=== PATIENT | female | born 1990 | race Caucasian/White ===

== ENCOUNTER 2024-11-26 17:23 | Outpatient (CLI) | payer OTHER, SELFPAY ==
[2024-11-26 17:56] VITALS: RESP 16; TEMP 36.9
[2024-11-26 18:51] LABS: ROM Internal Control Test YES-OK TO RESULT pt. (Internal QC); ROM Patient Test Negative (Negative)
[2024-11-26 18:52] LABS: Record Kit Lot#, ROM+ K3358
--- NOTE | 2024-11-26 18:56 | OB.TRI.NOTE ---
HPI - General HPI Narrative PAMELA BROWNING, is a 34 F at 40.3 weeks gestation who presents to rule out rupture of membranes. Stated she has been leaking fluid since earlier today. Denies any vaginal bleeding and reports positive movements. Maternal Data Information JERAD Calculator Estimated Delivery Date Method Current WG Current Estimate 11/23/24 Manual 40w 3d PFSH PFSH Home Medications ?Medication ?Instructions ?Recorded ?Last Taken ?Type biotin 1 mg capsule 1 mg PO DAILY 11/26/24 11/19/24 08:00 History 1 mg vits no.130-ferrous fum 1 tab PO .daily' 11/26/24 11/26/24 08:00 History 27 mg iron-folic acid 800 mcg 1 TAB tablet ( Vitamin) Allergy/AdvReac Type Severity Reaction Status Date / Time No Known Drug Allergies Allergy no known Verified 11/26/24 18:08 allergies ROS Eyes Eyes: Denies blurry vision Cardiovascular Cardiovascular: Reports none; Denies chest pain at rest, chest pain with activity or dizziness Respiratory/Chest Respiratory/Chest: Denies cough or dyspnea Gastrointestinal Gastrointestinal: Reports none and other; Denies diarrhea or vomiting Genitourinary Genitourinary: Denies dysuria Musculoskeletal Musculoskeletal: Reports none Integumentary Integumentary: Reports none; Denies rash Neurologic Neurologic: Denies dizziness, headache(s) or other visual disturbances Psychiatric Psychiatric: Reports none Physical Exam Const alert and no apparent distress General Appearance: cooperative Orientation / Consciousness: awake Exam Limitations: no limitations HEENT normocephalic Eyes General Eye: normal appearance of both eyes Neck full ROM Chest inspection of chest normal Resp normal respiratory effort and normal air movement Effort and Inspection: symmetric chest movement Auscultation: clear to auscultation bilaterally Cardio regular rate GI soft to palpation, non-tender and non-distended Inspection: and other Back/Spine normal ROM Extremity full ROM, normal capillary refill and no calf tenderness Skin no rashes or lesions noted Neuro oriented x3 and CN's II-XII intact bilaterally Psych mental status grossly normal NST FHR Rate Baby A Baseline: 140 Variability:: Moderate Accelerations:: 15 x 15 Decelerations:: None NST Reactive:: Yes FHR Category:: Category I Uterine Activity:: irregular Assessment & Plan (1) 40 weeks gestation of : (2) AMA (advanced maternal age) multigravida 35+: (3) No leakage of amniotic fluid into vagina: PLAN: Plan ROM PLUS- NEG NST reactive Cat. 1 tracing Patient scheduled for induction of labor at 41 weeks gestation D/C home
[2024-11-26 19:11] VITALS: BMI 29.1
== END 2024-11-26 19:10 | disposition home or self-care (01) ==
LOC: WPOUT 17:36 → WP 17:37
PROVIDERS: PCP Student in an Organized Health Care Education/Training Program; Referring Provider Advanced Practice Midwife; Visit Provider Advanced Practice Midwife
DX: Z03.71 Encounter for suspected problem with amniotic cavity and membrane ruled out (principal); O09.523 Supervision of elderly multigravida, third trimester; Z3A.40 40 weeks gestation of pregnancy
CPT/HCPCS: 59025; 59050; 84112; 99221; G0378

== ENCOUNTER 2024-11-27 19:07 | Inpatient (IN) | payer OTHER, SELFPAY ==
[2024-11-27] VITALS (20 sets, daily range): BP systolic 108–134; BP diastolic 55–87; PULSE 73–102; RESP 16–18; TEMP 36.6–37; O2SAT 96–100; BMI 28.1
[2024-11-27] MEDS: Lactated Ringers 1,000 ML 999 ML IV (19:55)
[2024-11-27] MEDS: fentaNYL 100 MCG/2 ML Ampul IV (20:04)
[2024-11-27 20:26] LABS: Absolute Lymphocyte Count 1.87 X10^3/uL (0.83-4.51); Absolute Neutrophil Count 13.4 X10^3/uL (2.0-7.7); Basophil# 0.03 X10^3/uL; Basophil% 0.2 % (0-1); Eosinophil# 0.07 X10^3/uL; Eosinophils% 0.4 % (0-5); Hematocrit 32.8 % (37-47); Hemoglobin 11.2 g/dL (12.0-15.0); Lymphocyte # 1.87 X10^3/ul (0.83-4.51); Lymphocyte % 11.3 % (19-41); Mean Corp Hgb Conc 34.1 g/dL (32-36); Mean Corpuscular Hgb 30.9 pg (27.0-32.0); Mean Corpuscular Volume 90.4 fL (81-99); Mean Platelet Vol. 12.2 fl (6.2-12.0); Monocyte# 1.01 X10^3/uL; Monocyte% 6.1 % (0-10); NRBC Flagged by Analyzer 0 % (0-5); Neutrophil # 13.35 X10^3/uL (2.7-7.7); Platelet Count 152 K/mm3 (150-450); RBC Distribution Width CV 12.7 % (11.6-14.6); RBC Distribution Width SD 41.5 fl (35.1-43.9); Red Blood Count 3.63 M/mm3 (4.2-5.4); White Blood Count 16.5 K/mm3 (4.4-11.0)
[2024-11-27] MEDS: Lactated Ringers 1,000 ML 200 ML IV (20:56)
[2024-11-27] MEDS: fentaNYL-bupivacaine (epidural) 100 ML BAG EPIDURAL (21:06)
[2024-11-27 21:25] LABS: Syphilis Antibodies Nonreactive (Nonreactive)
[2024-11-28] VITALS (58 sets, daily range): BP systolic 93–132; BP diastolic 51–70; PULSE 71–100; RESP 16–18; TEMP 36.6–37.8; O2SAT 96–99
[2024-11-28] MEDS: Lactated Ringers 1,000 ML 999 ML IV ×2 (00:47→08:06)
[2024-11-28] MEDS: 0.9% Saline Lock 10 ML Syringe IV ×2 (03:15→13:32)
[2024-11-28] MEDS: Ondansetron 4 MG/2 ML Vial IV (03:15)
[2024-11-28] MEDS: fentaNYL-bupivacaine (epidural) 100 ML BAG EPIDURAL (05:50)
[2024-11-28] MEDS: LACTATED RINGERS 500 ML 200 ML IV (05:53)
--- NOTE | 2024-11-28 07:01 | PCM.HP.OB ---
HPI - General General Date of Admission: 11/27/24 Date of Service: 11/28/24 Chief Complaint: labor HPI Narrative PAMELA BROWNING, is a 34 F who presents 1 para 0 who presents at 40-4/7 weeks on 11/27/2024 complaining of increased contractions she was found to be in early labor. She denied any gross vaginal bleeding or leaking of fluid. is complicated to date by advanced maternal age. She had an elevated 1 hour GTT but her 3-hour was normal. Maternal Data Information JERAD Calculator Estimated Delivery Date Method Current WG Current Estimate 11/23/24 Manual 40w 5d Final JERAD: 11/23/24 Gestational age: 40 5/7 PFSH PFSH Home Medications ?Medication ?Instructions ?Recorded ?Last Taken ?Type vits no.130-ferrous fum 1 tab PO .daily' 11/26/24 11/27/24 History 27 mg iron-folic acid 800 mcg tablet ( Vitamin) Allergy/AdvReac Type Severity Reaction Status Date / Time No Known Drug Allergies Allergy no known Verified 11/27/24 18:08 allergies Surgical History (Updated 11/27/24 @ 22:42 by Fabricio King) History of tonsillectomy and adenoidectomy [place] teeth extracted Social History (System 09/10/24 @ 05:47 by Mady Shaw) Smoking Status: Never smoker History Elective abortions Hx Para 0 Spontaneous abortions Hx # Term Pregnancies Ectopic pregnancies Hx # Pregnancies Multiple births # of living children ROS Constitutional Constitutional: Denies fatigue, fever(s) or malaise Eyes Eyes: Denies change in vision ENT HEENT: Denies dizziness or headache(s) Cardiovascular Cardiovascular: Denies chest pain, dyspnea or lightheadedness Respiratory/Chest Respiratory/Chest: Denies cough or dyspnea Gastrointestinal Gastrointestinal: Denies change in bowel habits Genitourinary Genitourinary: Denies burning urination or genital lesions Integumentary Integumentary: Denies rash Neurologic Neurologic: Denies confusion, dizziness, headache(s), numbness or weakness Vital Signs Vital Signs Vital Signs: 11/27/24 17:55 11/27/24 17:55 11/27/24 20:00 Temperature Temperature Source Pulse Rate 87 Respiratory Rate Blood Pressure 132/87 H 119/77 BP Systolic 132 119 BP Diastolic 87 77 Pulse Ox 11/27/24 20:00 11/27/24 20:25 11/27/24 20:25 Temperature Temperature Source Temporal Pulse Rate 73 Respiratory Rate 18 Blood Pressure BP Systolic BP Diastolic Pulse Ox 11/27/24 20:25 11/27/24 20:49 11/27/24 20:49 Temperature 97.8 F Temperature Source Pulse Rate 93 Respiratory Rate Blood Pressure BP Systolic BP Diastolic Pulse Ox 100 11/27/24 20:54 11/27/24 20:54 11/27/24 20:54 Temperature Temperature Source Pulse Rate 85 83 Respiratory Rate Blood Pressure 134/79 H BP Systolic 134 BP Diastolic 79 Pulse Ox 11/27/24 20:54 11/27/24 20:59 11/27/24 20:59 Temperature Temperature Source Pulse Rate 99 Respiratory Rate Blood Pressure 129/80 H BP Systolic 129 BP Diastolic 80 Pulse Ox 100 11/27/24 20:59 11/27/24 20:59 11/27/24 21:04 Temperature Temperature Source Pulse Rate 96 Respiratory Rate Blood Pressure 124/66 H BP Systolic 124 BP Diastolic 66 Pulse Ox 100 11/27/24 21:04 11/27/24 21:04 11/27/24 21:05 Temperature Temperature Source Pulse Rate 96 82 Respiratory Rate 16 Blood Pressure BP Systolic BP Diastolic Pulse Ox 11/27/24 21:05 11/27/24 21:09 11/27/24 21:09 Temperature Temperature Source Pulse Rate 85 Respiratory Rate Blood Pressure 113/57 L BP Systolic 113 BP Diastolic 57 Pulse Ox 99 11/27/24 21:09 11/27/24 21:10 11/27/24 21:10 Temperature Temperature Source Pulse Rate 95 Respiratory Rate 16 Blood Pressure BP Systolic BP Diastolic Pulse Ox 99 11/27/24 21:14 11/27/24 21:15 11/27/24 21:15 Temperature Temperature Source Pulse Rate 87 Respiratory Rate 16 Blood Pressure 121/76 H BP Systolic 121 BP Diastolic 76 Pulse Ox 11/27/24 21:15 11/27/24 21:15 11/27/24 21:19 Temperature Temperature Source Temporal Pulse Rate 89 Respiratory Rate Blood Pressure BP Systolic BP Diastolic Pulse Ox 100 11/27/24 21:19 11/27/24 21:19 11/27/24 21:19 Temperature Temperature Source Pulse Rate 90 Respiratory Rate 18 Blood Pressure 126/71 H BP Systolic 126 BP Diastolic 71 Pulse Ox 11/27/24 21:19 11/27/24 21:20 11/27/24 21:20 Temperature 98.6 F Temperature Source Pulse Rate 98 Respiratory Rate Blood Pressure BP Systolic BP Diastolic Pulse Ox 100 11/27/24 21:24 11/27/24 21:25 11/27/24 21:25 Temperature Temperature Source Pulse Rate 100 Respiratory Rate 16 Blood Pressure 130/69 H BP Systolic 130 BP Diastolic 69 Pulse Ox 11/27/24 21:25 11/27/24 21:25 11/27/24 21:30 Temperature Temperature Source Pulse Rate 100 Respiratory Rate Blood Pressure 130/77 H BP Systolic 130 BP Diastolic 77 Pulse Ox 100 11/27/24 21:30 11/27/24 22:16 11/27/24 22:16 Temperature Temperature Source Pulse Rate 96 97 Respiratory Rate Blood Pressure BP Systolic BP Diastolic Pulse Ox 99 11/27/24 22:25 11/27/24 22:25 11/27/24 23:26 Temperature Temperature Source Temporal Pulse Rate 102 H Respiratory Rate Blood Pressure 117/66 BP Systolic 117 BP Diastolic 66 Pulse Ox 11/27/24 23:26 11/27/24 23:26 11/27/24 23:26 Temperature Temperature Source Pulse Rate 89 Respiratory Rate 16 Blood Pressure 108/55 L BP Systolic 108 BP Diastolic 55 Pulse Ox 11/27/24 23:26 11/27/24 23:26 11/28/24 00:37 Temperature 98.6 F Temperature Source Pulse Rate Respiratory Rate Blood Pressure 115/59 L BP Systolic 115 BP Diastolic 59 Pulse Ox 96 11/28/24 00:37 11/28/24 00:42 11/28/24 00:42 Temperature Temperature Source Temporal Pulse Rate 82 Respiratory Rate 18 Blood Pressure BP Systolic BP Diastolic Pulse Ox 11/28/24 00:42 11/28/24 02:22 11/28/24 02:22 Temperature 98.5 F Temperature Source Pulse Rate 100 Respiratory Rate Blood Pressure 132/64 H BP Systolic 132 BP Diastolic 64 Pulse Ox 11/28/24 02:22 11/28/24 02:22 11/28/24 02:22 Temperature 98.1 F Temperature Source Temporal Pulse Rate Respiratory Rate 16 Blood Pressure BP Systolic BP Diastolic Pulse Ox 11/28/24 03:20 11/28/24 03:20 11/28/24 03:20 Temperature Temperature Source Temporal Pulse Rate 86 Respiratory Rate Blood Pressure 111/70 BP Systolic 111 BP Diastolic 70 Pulse Ox 11/28/24 03:20 11/28/24 03:20 11/28/24 03:20 Temperature 98.7 F Temperature Source Pulse Rate Respiratory Rate 18 Blood Pressure BP Systolic BP Diastolic Pulse Ox 98 11/28/24 04:21 11/28/24 04:21 11/28/24 04:21 Temperature Temperature Source Temporal Pulse Rate 93 Respiratory Rate Blood Pressure 114/68 BP Systolic 114 BP Diastolic 68 Pulse Ox 11/28/24 04:21 11/28/24 04:21 11/28/24 05:26 Temperature 99.7 F H Temperature Source Temporal Pulse Rate Respiratory Rate 18 Blood Pressure BP Systolic BP Diastolic Pulse Ox 11/28/24 05:26 11/28/24 05:26 11/28/24 05:27 Temperature 99.2 F H Temperature Source Pulse Rate Respiratory Rate 16 Blood Pressure 110/67 BP Systolic 110 BP Diastolic 67 Pulse Ox 11/28/24 05:27 11/28/24 06:25 11/28/24 06:25 Temperature Temperature Source Pulse Rate 85 97 Respiratory Rate Blood Pressure BP Systolic BP Diastolic Pulse Ox 99 11/28/24 06:25 11/28/24 06:25 11/28/24 06:25 Temperature 99.7 F H Temperature Source Temporal Pulse Rate Respiratory Rate 16 Blood Pressure BP Systolic BP Diastolic Pulse Ox 11/28/24 06:27 11/28/24 06:27 Temperature Temperature Source Pulse Rate 95 Respiratory Rate Blood Pressure 123/64 H BP Systolic 123 BP Diastolic 64 Pulse Ox Weight Weight: 91.626 kg Body Mass Index (BMI) 28.1 Physical Exam Const alert and no apparent distress General Appearance: cooperative HEENT normocephalic Resp normal respiratory effort Cardio regular rate GI soft to palpation GI Narrative: gravid, nontender, appropriate for gestational age Extremity no calf tenderness General Extremity: edema Skin no wounds Rashes: No rashes noted Psych activity/motor behavior normal Labs Labs Labs: Blood Type O POSITIVE Antibody Screen NEGATIVE Hct 32.8 % (37-47) L Hgb 11.2 g/dL (12.0-15.0) L Syphilis Total Ab Nonreactive (Nonreactive) Assessment & Plan (1) AMA (advanced maternal age) multigravida 35+: (2) Spontaneous onset of labor: PLAN: Estimated weight is less than 4500 g and pelvis clinically adequate to expect vaginal delivery. May have routine pain control measures during labor. (3) 40 weeks gestation of :
[2024-11-28] MEDS: Acetaminophen 500 MG Tablet PO (08:24)
[2024-11-28] MEDS: Oxytocin 15 Units/NS 250ml 15 UNITS/250 ML IV.SOLN 334 UNITS IV (09:50)
[2024-11-28] MEDS: Lidocaine 1% (20 ml mdv) 20 ML Vial INFILT (10:00)
--- NOTE | 2024-11-28 10:12 | EX.PCM.OBVAG ---
Assessment & Plan (1) (spontaneous vaginal delivery): Maternal Data Information JERAD Calculator Estimated Delivery Date Method Current WG Current Estimate 11/23/24 Manual 40w 5d Final JERAD: 11/23/24 Gestational age: 40+5 Vaginal Delivery Maternal Presentation Maternal Presentation: Active Labor Vaginal Delivery Information Procedure Performed: Spontaneous Vaginal Delivery Surgeon/Practitioner: Juani Posey Date of Procedure: 11/28/24 Pre-Procedure Diagnosis: Term Post-Procedure Diagnosis: Type of anesthesia: Epidural and Local with 1% Lidocaine Estimated Blood Loss: 150 cc Time of Delivery: 09:47 Findings Description of procedure: Admitted in active labor. Progressed to complete spontaneously. Pushed for 3 hours delivering the vertex OA. The anterior and posterior shoulders delivered easily. There was thick meconium behind the body. The infant was placed on the maternal abdomen and stimulated. The cried. The cord was clamped and cut at 60 sec. Cord blood was collected. The placenta delivered with gentle traction. A right labial laceration was repaired with 3-0 Vicryl. All sponge, needle and instruments counts were correct. Presentation: Vertex and ELROY Amniotic Membrane Rupture Type: Artificial Amniotic Fluid Description: Moderate meconium Placental Delivery Description: Spontaneous Placenta Disposition: [facility] Specimen collected: Yes Description of specimen(s) removed: cord blood Cord Vessel Description: 3 Vessels Cord Entanglement: None Infant A Gender: Male (1 minute): 6 (5 minute): 8 Delayed Cord Clamping: Yes Relay Repairer hospice registered nurse: No Post Vaginal Deli Medications given after delivery: IV Pitocin Episiotomy Description: None Laceration: Periurethral Extnsion/lac Complication Complications: No
[2024-11-28] MEDS: Oxytocin 15 Units/NS 250ml 15 UNITS/250 ML IV.SOLN 83 UNITS IV (10:22)
[2024-11-29] VITALS (7 sets, daily range): BP systolic 99–123; BP diastolic 58–78; PULSE 74–80; RESP 16–17; TEMP 36.6–37.4; O2SAT 94–97
--- NOTE | 2024-11-29 08:19 | PCM.PN.OB ---
Subjective Subjective Doing well. Ambulating and voiding without difficulty. Mild lochia. Breast feeding. Afebrile. Baby getting antibiotics Objective Data Objective Data Vital Signs: Vital Signs Temp Pulse Resp BP Pulse Ox O2 Del Method 98.1 F 79 16 102/66 96 Room Air 11/28/24 23:40 11/29/24 03:45 11/28/24 23:40 11/29/24 03:45 11/28/24 23:46 11/28/24 23:40 Oxygen Delivery Method Room Air Weight: 91.626 kg Body Mass Index (BMI) 28.1 Intake & Output: Intake and Output for Last 24 Hours 11/27/24 11/28/24 11/29/24 23:59 23:59 23:59 Intake Total 1000 / 1000 3492.18 / 3492.18 Output Total 950 / 950 Balance 1000 / 1000 2542.18 / 2542.18 Lab / Micro Data 11/27/24 19:55 ROS Constitutional Constitutional: Denies headache(s) Cardiovascular Cardiovascular: Denies chest pain or dyspnea Gastrointestinal Gastrointestinal: Denies nausea or vomiting Genitourinary Genitourinary: Denies dysuria Physical Exam Const alert, oriented x3 and no apparent distress General Appearance: cooperative and comfortable Eyes PERRL and EOMs intact bilaterally Resp normal respiratory effort GI soft to palpation and non-tender Uterus Palpation: uterus fundus firm ( below umbilicus) Extremity normal to inspection and full ROM Neuro oriented x3 and CN's II-XII intact bilaterally Psych mental status grossly normal Assessment & Plan (1) (spontaneous vaginal delivery): PLAN: Plan Routine
[2024-11-30 02:00] VITALS: BP 107/65; PULSE 82; RESP 17; TEMP 36.6; O2SAT 97
[2024-11-30 02:24] VITALS: PULSE 81; O2SAT 97
[2024-11-30 02:25] VITALS: BP 107/65; PULSE 76
--- NOTE | 2024-11-30 07:38 | PCM.PN.OB ---
Subjective Subjective Doing well. Ambulating and voiding without difficulty. Mild lochia. Breast feeding. Objective Data Objective Data Vital Signs: Vital Signs Temp Pulse Resp BP Pulse Ox O2 Del Method 97.8 F 76 17 107/65 97 Room Air 11/30/24 02:00 11/30/24 02:25 11/30/24 02:00 11/30/24 02:25 11/30/24 02:24 11/30/24 02:00 Oxygen Delivery Method Room Air Weight: 91.626 kg Body Mass Index (BMI) 28.1 Intake & Output: Intake and Output for Last 24 Hours 11/28/24 11/29/24 11/30/24 23:59 23:59 23:59 Intake Total 3492.18 / 3492.18 Output Total 950 / 950 Balance 2542.18 / 2542.18 Lab / Micro Data 11/27/24 19:55 ROS Constitutional Constitutional: Denies headache(s) Cardiovascular Cardiovascular: Denies chest pain or dyspnea Gastrointestinal Gastrointestinal: Denies nausea or vomiting Genitourinary Genitourinary: Denies dysuria Physical Exam Const alert, oriented x3 and no apparent distress General Appearance: cooperative and comfortable Eyes PERRL and EOMs intact bilaterally Resp normal respiratory effort GI soft to palpation and non-tender Uterus Palpation: uterus fundus firm ( below umbilicus) Extremity normal to inspection and full ROM Neuro oriented x3 and CN's II-XII intact bilaterally Psych mental status grossly normal Assessment & Plan (1) (spontaneous vaginal delivery): PLAN: Plan Discharge home. Follow up 2 weeks
--- NOTE | 2024-11-30 07:43 | PCM.DC.SUM ---
Providers Date of Admission: 11/27/24 Date of Discharge: 11/30/24 Primary Care Physician: Dr. Jj Valdovinos DO Reason For Visit: VAGINAL DELIVERY Diagnosis Discharge Diagnosis (1) (spontaneous vaginal delivery): Status: Acute Code(s): O80 - Encounter for full-term uncomplicated delivery Plan Discharge home. Follow up 2 weeks Medications at Discharge Home Medications vits no.130-ferrous fum 27 mg iron-folic acid 800 mcg tablet ( Vitamin) 1 tab PO .daily' 11/26/24 Hospital Course Operations None Procedures None Summary of Care Provided Minutes Spent on Discharge: 21 Hospital Course: no complications . Breast feeding. Physical Exam Const alert and no apparent distress Narrative: Fundus firm, below umbilicus. Weight / BMI Weight Weight: 91.626 kg Body Mass Index (BMI) 28.1 ABG / Lab / Microbiology Data 11/27/24 19:55 D/C Instructions Discharge Diet: No restrictions May resume sexual activity in: 6 weeks DC O2, CPAP, BIPAP Needs Home O2 Discharge instructions: No Please Follow Up With: Akua Wilkins MD When: Follow up with our office in 1-2 and 6 weeks or as needed. [phone] Meaningful Use Info Meaningful Use Meaningful Use Diagnoses (Choose all that apply): None applicable Ischemic Stroke Statin Dosing Therapy Reference: STATIN DOSE THERAPY REFERENCE: * Patients > 75 years receive moderate or high dose statin therapy. * Patients 75 years or YOUNGER should receive HIGH intensity statin dose unless contraindicated. You will be required to document reason for non-treatment if statin daily dose does not meet guidelines. HIGH DOSE STATIN THERAPY DAILY Atorvastatin > than or = to 40 mg Rosuvastatin > than or = to 20 mg Amlodipine + Atorvastatin > than or = to 2.5/40 mg Ezetimibe + Simvastatin 10/80 mg Simvastatin 80mg Discharge Plan Admission Admit Date/Time: 11/27/24 19:07 Primary Reason for Your Visit: labor Attending Provider: Juani Posey Primary Care Provider: Jj Valdovinos Discharge Orders/Prescriptions Prescriptions: Continued Vitamin 27 mg iron- 800 mcg tablet 1 tab PO .daily' Referrals / Follow Up: Jj Valdovinos DO [Primary Care Provider] - Disposition Disposition (needs filled in before D/C Order can be placed): Home, Self Care
[2024-11-30 08:57] VITALS: PULSE 90; O2SAT 97
[2024-11-30 08:58] VITALS: BP 111/65; PULSE 84; PULSE 85; RESP 16; TEMP 36.9; O2SAT 98
== END 2024-11-30 11:30 | disposition home or self-care (01) | DRG 807 ==
LOC: WPOUT 19:13 → WP 19:13
PROVIDERS: Obstetrics & Gynecology; Admitting Provider Obstetrics & Gynecology; PCP Student in an Organized Health Care Education/Training Program; Referring Provider Obstetrics & Gynecology; Visit Provider Obstetrics & Gynecology
DX: O77.0 Labor and delivery complicated by meconium in amniotic fluid (principal); Z37.0 Single live birth; O70.0 First degree perineal laceration during delivery; Z3A.40 40 weeks gestation of pregnancy
CPT/HCPCS: 59025; 59050; 85025; 86780; 86850; 86900; 86901; 99221; A4216; G0378; J2405